=== PATIENT | female | born 1970 | race Caucasian/White ===

== ENCOUNTER 2018-10-30 04:43 | Emergency (ER) | payer BC ==
[~2018-10-30] VITALS: Ht 165.1 cm; Wt 77.1 kg
[~2018-10-30 04:43] MED LIST: IBUP-1518 PO; LORA10TA68 PO; PRO40 PO
[2018-10-30 05:00] VITALS: BP_SYST 119
--- NOTE | 2018-10-30 05:00 | NUR ---
Pt ambulatory to bed 8 for evalauation
--- NOTE | 2018-10-30 05:19 | NUR ---
ER Dr. Yi at bedside examining patient.
[2018-10-30] MEDS ORDERED: NACL 0.9% 1,000 ML IV ONE (05:23)
--- NOTE | 2018-10-30 05:25 | NUR ---
Patient arrived from home [id number] and able to verbalize her needs. Compliants of left lower abdominal pain 10/10 since yesterday evening with increasing pain this morning around 0200. Took over the counter meds without any relief. Patient states that it feels like shes having contractions. Hx of Diverticulitis. Denies any N/V/D, chest pain, chills, or fever. Able to ambulate with a steady gait.
--- NOTE | 2018-10-30 05:28 | NUR ---
Patient is unable to give urine sample at this time.
[2018-10-30] MEDS ORDERED: ONDANSETRON HCL 4 MG/2 ML VIAL IVP ONE (05:30)
[2018-10-30] MEDS ORDERED: MORPHINE 4 MG/ML INJ. SYRINGE IVP ONE (05:30)
--- NOTE | 2018-10-30 05:40 | NUR ---
# 20 gauge angiocath placed to Left forearm. Use of asceptic technique. Opsite placed over site. Blood return noted. Blood for lab drawn from site. Flushed with 10 cc of normal saline. No evidence of infiltration noted. Patient tolerated well.
[2018-10-30] MEDS ORDERED: IOHEXOL 100 ML IV ONE (05:42)
--- NOTE | 2018-10-30 05:43 | NUR ---
Blood drawn and dropped off to lab.
[2018-10-30 05:53] LABS: HEMATOCRIT 42.8 % (36-48); HEMOGLOBIN 14.1 g/dL (12.0-16.0); MEAN CORPUSCULAR HEMOGLOBIN 30 pg (27-31); MEAN CORPUSCULAR HGB CONC 33 % (32-36); MEAN CORPUSCULAR VOLUME 90 fL (79.0-98.0); PLATELET COUNT (AUTO) 220 K/uL (130-430); RED BLOOD CELL COUNT(AUTO) 4.76 MIL/uL (4.2-6.2); RED CELL DISTRIBUTION WIDTH 13.7 % (9.0-15.0); WHITE BLOOD COUNT (AUTO) 13.5 K/uL (4.8-10.8)
[2018-10-30 06:05] LABS: ATYPICAL LYMPHOCYTES % 0 % (0-0); BAND % (MANUAL) 1 % (0-6); BASOPHILS % (MANUAL) 0 % (0-2); CALCIUM 8.4 mg/dL (8.4-11.0); CREATININE 0.72 mg/dL (0.55-1.30); EOSINOPHILS % (MANUAL) 0 % (0-7); LYMPHOCYTES % (MANUAL) 9 % (20-46); METAMYELOCYTES % 0 % (0-0); MONOCYTES % (MANUAL) 2 % (0-11); MYELOCYTES % 0 % (0-0); POTASSIUM 3.5 mmol/L (3.5-5.1)
[2018-10-30 06:07] LABS: INR 0.9 (0.8-1.2); PROTHROMBIN TIME 9.2 SECS (9.5-12.5)
[2018-10-30 06:11] LABS: TOTAL BILIRUBIN 0.5 mg/dL (0.0-1.0)
[2018-10-30] MEDS ORDERED: MORPHINE SULFATE 10 MG/ML VIAL ONE (06:12)
[2018-10-30] MEDS ORDERED: MORPHINE SULFATE 10 MG/ML VIAL IVP ONE (06:15)
[2018-10-30 06:40] LABS: BILIRUBIN,URINE NEGATIVE (NEGATIVE); BLOOD, URINE 1+ (NEGATIVE); CLARITY/URINE CLEAR (CLEAR); COLOR,URINE YELLOW (YELLOW); GLUCOSE,URINE NEGATIVE (NEGATIVE); KETONES,URINE NEGATIVE (NEGATIVE); LEUKOCYTE ESTERASE ,URINE NEGATIVE (NEGATIVE); NITRITE, URINE NEGATIVE (NEGATIVE); PROTEIN URINE NEGATIVE (NEGATIVE); UROBILINOGEN,URINE 0.2 (0.2-1.0)
[2018-10-30 06:50] LABS: BACTERIA,URINE FEW /HPF (None Seen); MUCUS,URINE None Seen /LPF (None Seen); RBC,URINE 0-3 /HPF (0-3); WBC,URINE 0-3 /HPF (0-3)
--- NOTE | 2018-10-30 07:30 | NUR ---
Patient resting comfortably @ this time. No signs of distress noted. No complaints of pain.
[2018-10-30 09:30] VITALS: BP_SYST 106
--- NOTE | 2018-10-30 09:30 | NUR ---
Patient given written and verbal discharge instructions and verbalizes understanding. ER MD discussed with patient the results and treatment provided. Patient in stable condition. ID arm band removed. IV catheter removed intact and dressing applied, no active bleeding. Rx of Tylenol,flagyl,diflucan given. Patient educated on pain management and to follow up with PMD. Pain Scale 2/10 tolerable for patient . Opportunity for questions provided and answered. Medication side effect fact sheet provided.
--- NOTE | 2018-10-30 11:37 | NUR ---
RECEIVED DISCREPTANCY FROM DR LUZ IN RADIOLOGY, DISCUSSED WITH DR ANTHONY. NO FURTHER ACTIONS NEEDED.
== END 2018-10-30 09:30 | disposition home or self-care (01) ==
LOC: SED 04:43
DX: R10.32 Left lower quadrant pain (principal); Z87.19 Personal history of other diseases of the digestive system; Z88.8 Allergy status to other drugs, medicaments and biological substances; Z79.899 Other long term (current) drug therapy
CPT/HCPCS: 36415; 74177; 80053; 81000; 81025; 82150; 83690; 85007; 85027; 85610; 96374; 99284; J2270; J7030; Q9967